=== PATIENT | male | born 2000 | race Caucasian/White ===

== ENCOUNTER 2022-12-02 13:13 | Emergency (ER) | payer SELFPAY ==
[2022-12-02 13:17] VITALS: BP 126/69; PULSE 85; RESP 20; TEMP 36.4; O2SAT 97; BMI 37.9
--- NOTE | 2022-12-02 13:20 | ED.GENADULT ---
HPI - General Adult General Chief complaint: Skin/Abscess/Foreign Body Stated complaint: Cyst Time Seen by Provider: 12/02/22 15:01 Source: patient Mode of arrival: ambulatory Limitations: no limitations History of Present Illness HPI narrative: Patient is a 22-year-old male presenting to the emergency department with complaint of erythema, pain, and swelling to cleft for the past 2 days. He denies fever, chills, body aches. Denies any discharge or drainage from the area. Reports he has been taking warm baths which have been exacerbating the pain. Reports history of incision and drainage to the same area in the past. complaint: cleft swelling Onset (ago): day(s) Location: buttocks Radiation: non-radiation Severity: severe Quality: aching Pain Consistency: constant Relieving factors: other (standing) Exacerbating factors: other (sitting) Associated symptoms: denies other symptoms Treatments prior to arrival: other (warm baths) Related Data Previous Rx's Medication Instructions Recorded cephalexin 500 mg capsule 500 mg PO QID 7 days #28 caps 12/02/22 Allergies Allergy/AdvReac Type Severity Reaction Status Date / Time No Known Allergies Allergy Verified 12/02/22 15:43 Review of Systems Review of Systems: As per HPI. Yes all other systems are reviewed and are negative Constitutional: Constitutional: Reports as per HPI [facility] Social History Social History Advance Directives: No Advance Directives Information Provided: No Physical Exam ED Vital Signs: Vital Signs - 24 hr 12/02/22 13:17 Temperature 97.6 F Pulse Rate 85 Respiratory Rate 20 Blood Pressure 126/69 Pulse Oximetry 97 Oxygen Delivery Method Room Air BMI result Body Mass Index 37.9 Vital signs have been reviewed and appear to be correct. Blood pressure normal. Heart rate normal. Respiratory rate normal. Temperature normal. Oxygen saturation normal. Const General: cooperative, healthy appearing and no acute distress Orientation/consciousness: oriented to person, oriented to place, oriented to time and patient oriented x3 Limitations: no limitations HENMT Head: Yes normocephalic and Yes atraumatic Ears: external ears normal General nose exam: Normal external nose present Face and sinus: Yes face symmetric Mouth: oropharynx normal and moist mucous membranes Throat: Yes uvula midline Eyes Pupils: Equal, round and reactive pupils present Neck Neck: Yes normal visual inspection and Yes supple Resp Effort & Inspection: normal respiratory effort and able to speak in complete sentences Auscultation: clear to auscultation bilaterally Cardio Rate: regular rate Rhythm: regular rhythm Heart sounds: S1 normal heart sound present and S2 normal heart sound present GI Palpation (GI): Soft to palpation and nontender Auscultation: normoactive bowel sounds General: Yes no CVA tenderness Back/Spine/Pelvis Back: no CVA tenderness Skin Other: Exam chaperoned by CLAUDY Escobedo. General skin exam: elasticity normal and turgor normal Full body images: 1. 2cm area of erythema, tenderness, and induration just right of the jose francisco cleft, no fluctuance or drainage, no warmth Neuro General: oriented to person, oriented to place, oriented to time, patient oriented x3, moves all extremities, no focal motor deficits and CN's II-XI intact bilaterally Cranial nerves: Yes Equal, round and reactive pupils present Cognition (Neuro): normal cognition Extrem General: Yes full ROM, Yes no pedal edema and Yes no calf tenderness Psych Mental Status: mental status grossly normal Affect: normal affect Thought process: Normal thought process present Course Course Course Narrative: Rapid medical exam pending full evaluation treatment and dispo by ER provider Patient complains of tailbone cyst for several days, he has had them before denies fever Medical Decision Making Medical Decision Making MDM Narrative: Patient is a 22-year-old male presenting to the emergency department with complaint of erythema, pain, and swelling to cleft for the past 2 days. On exam patient is awake, A+Ox3, VS WNL, afebrile, normal neurological exam without focal deficits, physical exam findings as above. Given reported symptoms and physical exam findings, initial differential includes abscess, pilonidal cyst, cellulitis. Given that area is indurated without fluctuance will defer incision and drainage at this time. Will start patient on course of cephalexin and instructed patient to continue with Sitz baths. Return precautions discussed at bedside. Will refer patient to general surgery given that this has been a recurrent issue. Patient verbalized understanding of and agreement with plan. Differential Diagnosis Differential Diagnoses: The differential diagnosis associated with the presentation includes As per MDM. External Record Review External record reviewed: Inpatient record, Office record and Outpatient record Prescription Management I considered prescription management with: Antibiotic Discharge Plan Discharge Clinical Impression: Pilonidal abscess of cleft Patient Disposition: Home, Self-Care Instructions: Pilonidal Cyst (ED), Abscess (ED), Sitz Bath (DC), Abscess Follow-up (ED), Pilonidal Cyst Excision (DC) Additional Instructions: You are being prescribed antibiotics, please complete the full course as prescribed. You should take these antibiotics with a full meal. You should continue to perform Sitz baths several times daily. Please follow-up with your primary care provider. You are being referred to General surgery given that this has been a recurrent issue. Return to the emergency department if you develop fever 100.4? F or greater, chills, body aches, or any other concerning symptoms. Prescriptions: New cephalexin 500 mg capsule 500 mg PO QID 7 Days Qty: 28 0RF Referrals: [facility] [place] General Surgeons [Provider Group]
== END 2022-12-02 16:44 | disposition home or self-care (01) ==
PROVIDERS: Emergency Provider Emergency Medicine
DX: L05.01 Pilonidal cyst with abscess (principal)
CPT/HCPCS: 99282; 99283